=== PATIENT | male | born 1970 | race Caucasian/White ===

== ENCOUNTER 2016-11-21 20:41 | Inpatient (IN) | payer OTHER ==
--- NOTE | ~2016-11-21 | HP ---
History And Physical [place] [address] [facility] [place] [place]. [address] NAME: BRENDA CHUNG : 74 STATUS : ADM IN PAT#: [id number] AGE: 46 ADM/REG DATE : 11/21/16 MR#: [id number] REPORT SERV DATE: 11/22/16 DICTATED BY: MURALI OBANDO DATE: 11/22/16 REPORT STATUS : Draft TRANSCRIBED BY: MODL DATE: 11/22/16 DATE OF ADMISSION: 11/21/2016 REPORT TITLE: Cardiology Admission Note BODY AFTER REPORT TITLE: ADMISSION DIAGNOSIS: Unstable angina. HISTORY OF PRESENT ILLNESS: Mr. Chung is a very pleasant 46-year-old male who presented to [facility] yesterday afternoon for evaluation of chest discomfort at rest. He has a history of CAD with prior stenting to his LAD in 2013, at which time, he presented with acute coronary syndrome. He had a significant 99% acute LAD lesion that was treated with two drug-eluting stents and had a good result with no significant decline in systolic function based on LV gram at that time. He has been managed by Dr. Phill Vega since then and has been stable with no recurrent events. He was taken off his Plavix after approximately two years and has done well on aspirin and statin alone. For the past two to three weeks, he has been noticing a sensation of increased fatigue and shortness of breath. Yesterday afternoon, he felt a sense of pressure in the left side of his chest that was radiating to his shoulder. This reminded him of the sensation that he felt back in 2013 when he had his myocardial infarction. The symptoms were less severe, but very similar in quality. He drove himself to the ER and was worked up for these symptoms. His initial troponins were normal. His EKG was reported to have some ST depressions. Based on my conversation with the ER doc in [place], it seems that the unstable angina was probable and I requested the patient to be transferred to [facility] for likely cardiac catheterization as part of his evaluation. He arrived overnight and had resolution of his chest pain after sublingual nitroglycerin. He had no chest discomfort overnight. This morning, he feels well and states that all the symptoms have resolved. He did have nitroglycerin paste initially, but this was discontinued due to headache. PAST MEDICAL HISTORY: 1. Coronary artery disease with stenting to his LAD in 09/2013 after presenting with acute coronary syndrome. Nonobstructive disease in other major vessels. 2. History of nephrolithiasis. 3. History of cholelithiasis, status post laparoscopic cholecystectomy in 2016. MEDICATIONS: Vitamin C, aspirin 162, Pepcid 20 b.i.d., Pravachol 80 at bedtime, and vitamin B12. ALLERGIES: LISTED TO CODEINE AND HYDROCODONE, WHICH CAUSED RASH AND ITCHINESS. FAMILY HISTORY: The patient's father had an ND in his 60s. The patient's grandfather also at an early age from complications from an ND. History And Physical [address] [address] NAME: BRENDA CHUNG : 74 STATUS : ADM IN [facility]#: [id number] AGE: 46 ADM/REG DATE : 11/21/16 MR#: [id number] REPORT SERV DATE: 11/22/16 DICTATED BY: MURALI OBANDO DATE: 11/22/16 REPORT STATUS : Draft TRANSCRIBED BY: TONYA DATE: 11/22/16 SOCIAL HISTORY: The patient is . He works as a contractor and realtor and recently transitioned to a different work environment in [place], which has caused some stress in his life. He is a lifelong nonsmoker and only uses alcohol rarely. No illicits. REVIEW OF SYSTEMS: Per HPI, otherwise, negative. PHYSICAL EXAMINATION: VITAL SIGNS: Temp 98.5, heart rate 57, blood pressure 110/53, respiratory rate 14. GENERAL: Appears comfortable. HEENT: Sclerae anicteric; mucous membranes moist. NECK: No JVD. Thyroid not tender or enlarged. CARDIOVASCULAR: Regular rhythm with normal S1/S2. No murmurs, rubs, or gallop. PULMONARY: Lung patton CTA. ABDOMEN: Soft, nontender, no masses. EXTREMITIES: Warm, no edema. NEUROLOGIC: Grossly without deficits. LABORATORY DATA: Labs reviewed, notable for a potassium of 3.9, creatinine 1.1. WBC 6.0, hemoglobin 14.7, hematocrit 44.2. Troponin less than 0.02 x2. STUDIES: EKG dated 11/21/2016, time 2204 hours, sinus rhythm, rate 68. No acute ST-segment abnormalities. Prior EKG dated 11/[address]-segment abnormalities with very subtle ST depressions in the lateral leads. IMPRESSION/RECOMMENDATIONS: 1. Chest discomfort suggestive of unstable angina. 2. History of coronary artery disease and percutaneous coronary intervention to the left anterior descending. Objectively, the patient has no evidence of myocardial infarction, but his symptoms are suggestive of unstable angina, particularly with known coronary artery disease and prior stenting to his left anterior descending. I have discussed both invasive and noninvasive approaches as the next step in evaluation, and I favor an invasive approach with cardiac cath to definitively rule out obstructive coronary artery disease given the high probability based on history. The patient is in favor of this. We will perform this on Thursday or earlier as his clinical status dictates. I will discontinue heparin, which was started overnight as his enzymes have been negative and his chest pain has improved. I will continue him on aspirin. We will use nitroglycerin as needed. His heart rate is in the 60s, so we will also avoid beta-blockers for now. We will defer Plavix until after his anatomy is assessed by catheterization. POORNIMA/TONYA Murali Hurley History And Physical [address] [address] NAME: BRENDA CHUNG : 74 STATUS : ADM IN PAT#: [id number] AGE: 46 ADM/REG DATE : 11/21/16 MR#: [id number] REPORT SERV DATE: 11/22/16 DICTATED BY: MURALI OBANDO DATE: 11/22/16 REPORT STATUS : Draft TRANSCRIBED BY: TONYA DATE: 11/22/16 MD Topher / [id number] CC: Murali Obando MD
--- NOTE | ~2016-11-21 | DS ---
Discharge Summary [facility] [address] [place]. [address] NAME: BRENDA CHUNG : 74 STATUS : DIS IN PAT#: [id number] AGE: 46 ADM/REG DATE : 11/21/16 MR#: [id number] REPORT SERV DATE: 12/04/16 DICTATED BY: MURALI OBANDO DATE: 12/03/16 REPORT STATUS : Draft TRANSCRIBED BY: TONYA DATE: 12/03/16 Data Collection from hospitalization DISCHARGE DIAGNOSES: 1. Chest pain/unstable angina. 2. Coronary artery disease. 3. History of nephrolithiasis. CONSULTATIONS: None. PROCEDURES PERFORMED: Cardiac catheterization on 11/24/2016. MEDICATIONS: Vitamin C 500 mg daily, aspirin 162 mg daily, Temovate cream one application topically twice a day, Pepcid 20 mg twice a day, Pravachol 80 mg at bedtime, vitamin B12 one tablet daily, and OpCon solution one drop daily as needed. CONDITION AT DISCHARGE: Stable. DISPOSITION: The patient was discharged home on a low-sodium, low-cholesterol, cardiac diet with activities as instructed. He would follow up with Dr. Geoffrey Dhillon on 12/26/2016. He would follow up with his primary care provider as needed. HOSPITAL COURSE: This is a 46-year-old man who presented to [facility] on the afternoon prior to this admission for evaluation of chest discomfort at rest. He has a history of coronary artery disease with prior stenting to the LAD in 2013 at which time, he had presented with acute coronary syndrome. He had a significant 99% acute LAD lesion that was treated with two drug-eluting stents and he had a good result with no significant decline in systolic function based on the left ventriculogram at that time. He has been managed by Dr. Phill Vega since that time and had been stable with no recurrent events. He was taken off the Plavix after approximately two years and had done well on aspirin and statin alone. Over the past two to three weeks prior to admission, he began to notice a sensation of increased fatigue and shortness of breath. On the afternoon prior to this admission, he felt like he had a sense of pressure in the left side of his chest that was radiating to the shoulder, this reminded him of this sensation he felt in 2013 when he had his myocardial infarction. The symptoms were less severe, but very similar in quality. He drove himself to the emergency room and was worked up for these symptoms. Initial troponins were normal. His EKG did reveal some ST depression. It was felt that he had unstable angina. It was requested that the patient be transferred to [facility] to undergo likely cardiac catheterization as part of his evaluation. He had resolution of his chest pain after receiving sublingual nitroglycerin. He had no chest discomfort overnight. That morning, he said he felt well and that his symptoms had resolved. He initially had nitroglycerin paste, but this was discontinued due to a headache. He was admitted to the hospital at this time for further evaluation and treatment. Upon admission, troponin was less than 0.02 x2. Subjectively, the patient had no evidence for myocardial infarction, but his symptoms were suggestive of unstable angina. Invasive and noninvasive approaches were discussed. I was in favor of cardiac catheterization to definitively rule out obstructive coronary disease given the high probability based on his Discharge Summary [address] [address] NAME: BERNDA CHUNG : 74 STATUS : DIS IN PAT#: [id number] AGE: 46 ADM/REG DATE : 11/21/16 MR#: [id number] REPORT SERV DATE: 12/04/16 DICTATED BY: MURALI OBANDO DATE: 12/03/16 REPORT STATUS : Draft TRANSCRIBED BY: TONYA DATE: 12/03/16 history. The patient was in favor of this. Heparin was started overnight as his enzymes had been negative and his chest pain had improved. Aspirin was continued. We would use nitroglycerin as needed. His heart rate was in the 60s, so we would also avoid beta-cal for now. On the 11/23/2016, he had no events overnight. He had no edema. His EKG was unchanged. On 11/24/2016, he was taken to the cardiac laboratory apparatus [facility] grinder where he underwent the above mentioned procedure. He tolerated this well, and there were no complications. Following the catheterization, he complained of having some headache with nausea. He had no chest pain or shortness of breath. Troponin was negative x2. He was in sinus rhythm. Discharge instructions were given. Due to his improved and stable condition, he was discharged home with the above-stated instructions. Information collected by: Daily Kaur I submit the above information as my discharge summary. TG/MODL Murali Obando MD / [id number] CC: MD Lele Valdez M.D.
[~2016-11-21 20:41] MED LIST: ASAB PO; BRILINTA90 MG PO; KLONOPIN WAF0.125 MG PO; LIPITOR40 PO; LOP25 PO; MULTIVIT/MIN PO; NITROSTAT0.4 MG SL; NO CURRENT MEDS; OPCON-A OPH; PEP20 PO; PLAVIX PO; PRAVACHOL80 MG PO; TEMOVATE CREAM30 GM TOP; ULTRAM50 PO; VITAMIN B-12 PO; VITC500 PO
[2016-11-22 05:52] LABS: BASOPHILS 0.5 %; BASOPHILS ABSOLUTE 0.03 10/3/uL (0.0-0.16); EOSINOPHILS 3.3 %; HEMATOCRIT 44.2 % (40.0-51.0); HEMOGLOBIN 14.7 g/dL (13.6-17.8); IMMATURE GRANULOCYTES 0.2 %; IMMATURE GRANULOCYTES ABSOLUTE 0.01 10/3/uL (0.0-0.11); LYMPHOCYTES 54.8 %; LYMPHOCYTES ABSOLUTE 3.28 10/3/uL (0.67-4.30); MEAN CORPUS HGB CONC 33.3 g/dL (32.0-36.0); MEAN CORPUSCULAR HEMOGLOB 29.4 pg (26.0-34.0); MEAN CORPUSCULAR VOLUME 88.4 fL (80-100); MEAN PLATELET VOLUME 9.5 fL (9.2-13.0); MONOCYTES 6.9 %; MONOCYTES ABSOLUTE 0.41 10/3/uL (0.21-1.20); NEUTROPHILS 34.3 %; NEUTROPHILS ABSOLUTE 2.05 10/3/uL (2.02-8.40); PLATELET COUNT 204 10/3/uL (150-400); RBC DISTRIBUTION WIDTH 12.9 % (12.0-16.0)
[2016-11-22 05:53] LABS: MANUAL DIFF NO %
[2016-11-22 06:05] LABS: BUN (BLOOD UREA NITROGEN) 18 MG/DL (6-23); CALCIUM, SERUM 8.4 MG/DL (8.5-10.4); CHLORIDE, SERUM 107 MMOL/L (96-112); CPK 86 U/L (0-200); CREATININE 1.11 MG/DL (0.70-1.30); GFR AFRICAN AMERICAN 93 ML/MIN (>=60); GFR NON AFRICAN AMERICAN 80 ML/MIN (>=60); GLUCOSE, SERUM 93 MG/DL (60-99); POTASSIUM, SERUM 3.9 MMOL/L (3.5-5.3); SODIUM, SERUM 142 MMOL/L (135-148); TROPONIN I <0.02 NG/ML (<0.05)
[2016-11-22 06:08] LABS: CK-MB 0.8 NG/ML; CO2 (CARBON DIOXIDE) 26 MMOL/L (24-34)
[2016-11-24 04:57] LABS: BASOPHILS 0.3 %; BASOPHILS ABSOLUTE 0.02 10/3/uL (0.0-0.16); EOSINOPHILS 3.8 %; EOSINOPHILS ABSOLUTE 0.23 10/3/uL (0.0-0.53); HEMATOCRIT 45.2 % (40.0-51.0); HEMOGLOBIN 15.4 g/dL (13.6-17.8); IMMATURE GRANULOCYTES 0.2 %; IMMATURE GRANULOCYTES ABSOLUTE 0.01 10/3/uL (0.0-0.11); LYMPHOCYTES 42.5 %; LYMPHOCYTES ABSOLUTE 2.56 10/3/uL (0.67-4.30); MEAN CORPUS HGB CONC 34.1 g/dL (32.0-36.0); MEAN CORPUSCULAR HEMOGLOB 29.5 pg (26.0-34.0); MEAN CORPUSCULAR VOLUME 86.6 fL (80-100); MEAN PLATELET VOLUME 9.3 fL (9.2-13.0); MONOCYTES 8.3 %; NEUTROPHILS 44.9 %; PLATELET COUNT 210 10/3/uL (150-400); RBC DISTRIBUTION WIDTH 12.8 % (12.0-16.0); RED CELL COUNT 5.22 10/6/uL (4.7-6.1)
[2016-11-24 04:59] LABS: MANUAL DIFF NO %
[2016-11-24 05:06] LABS: INTERNATIONAL NORMAL RATI 0.9 UNITS (-); PROTIME (NOT ORD) 12.5 SEC (12.0-14.5)
[2016-11-24 05:21] LABS: BUN (BLOOD UREA NITROGEN) 18 MG/DL (6-23); CALCIUM, SERUM 8.5 MG/DL (8.5-10.4); CHLORIDE, SERUM 105 MMOL/L (96-112); CHOL/HDL RATIO(NOT ORDER) 3.7 (0-5); CHOLESTEROL 133 MG/DL (< 200); CO2 (CARBON DIOXIDE) 27 MMOL/L (24-34); CREATININE 1.07 MG/DL (0.70-1.30); GFR AFRICAN AMERICAN 97 ML/MIN (>=60); GFR NON AFRICAN AMERICAN 84 ML/MIN (>=60); GLUCOSE, SERUM 97 MG/DL (60-99); HDL CHOLESTEROL 36 MG/DL (> 39); LDL CHOLESTEROL 73 MG/DL (< 130); NON-HDL CHOLESTEROL 97 MG/DL (< 160); POTASSIUM, SERUM 3.8 MMOL/L (3.5-5.3); SODIUM, SERUM 141 MMOL/L (135-148)
[2016-11-24 05:23] LABS: TRIGLYCERIDE 124 MG/DL (< 150)
== END 2016-11-24 17:27 | disposition home or self-care (01) | DRG 287 ==
LOC: 5NO 20:41
PROVIDERS: Internal Medicine Cardiovascular Disease
PROC: 4A023N7 Measurement of Cardiac Sampling and Pressure, Left Heart, Percutaneous Approach (ICD-10-PCS; principal; 2016-11-24)
PROC: B2111ZZ Fluoroscopy of Multiple Coronary Arteries using Low Osmolar Contrast (ICD-10-PCS; 2016-11-24)
PROC: B2151ZZ Fluoroscopy of Left Heart using Low Osmolar Contrast (ICD-10-PCS; 2016-11-24)
DX: I25.110 Atherosclerotic heart disease of native coronary artery with unstable angina pectoris (principal); I10 Essential (primary) hypertension; E78.5 Hyperlipidemia, unspecified; Z95.5 Presence of coronary angioplasty implant and graft; Z90.49 Acquired absence of other specified parts of digestive tract; I25.2 Old myocardial infarction; Z88.5 Allergy status to narcotic agent; Z88.8 Allergy status to other drugs, medicaments and biological substances; Z79.82 Long term (current) use of aspirin; Z79.899 Other long term (current) drug therapy
CPT/HCPCS: 71020; 80048; 80061; 82550; 82553; 83735; 84484; 85025; 85610; 85730; 93005; 93458; 96365; 96366; 96375; 99152; 99153; 99285; A9270-GY; C1769; C1887; C1894; J2250; J2405; J3010; Q9967